=== PATIENT | female | born 1955 | race Caucasian/White ===

== ENCOUNTER 2017-03-09 08:54 | Day surgery (SDC) | payer BC, OTHER ==
[2017-03-09] MEDS ORDERED: Lactated Ringers 1,000 ML IV SCH (09:30)
[2017-03-09] MEDS ORDERED: Propofol 200 MG/20 ML SDV ONE (09:48)
[2017-03-09] MEDS ORDERED: Midazolam 1 MG/ML 2 ML SDV ONE (09:49)
[2017-03-09] MEDS ORDERED: fentaNYL 100 MCG/2 ML SDV ONE (09:49)
[2017-03-09 12:49] VITALS: BP 118/86
--- NOTE | 2017-03-10 07:30 | OR ---
DATE OF PROCEDURE: 03/09/2017 PREOPERATIVE DIAGNOSIS: Colon cancer screening. POSTOPERATIVE DIAGNOSIS: Diverticulosis. PROCEDURE: Colonoscopy to the cecum. ANESTHESIA: IV anesthesia with monitored anesthesia care. INDICATION: This 61-year-old white female was referred for a colonoscopy for colon cancer screening. She has never had a colonoscopic exam. I counseled her for the procedure including risks and alternatives and she gave her informed consent to proceed. DESCRIPTION OF PROCEDURE: The patient was placed in the left lateral decubitus position. IV anesthesia was administered by the Anesthesia Service. Time-out was held. A rectal exam was performed, which was unremarkable. A flexible video Olympus colonoscope was introduced through her anus, up her rectum, and out her colon all the way to the cecum. En route, we saw several left-sided diverticula. There was no bleeding or inflammation associated with them. Once the cecum was reached, the scope was slowly withdrawn examining the mucosa throughout. No additional mucosal abnormalities were noted. The scope was retroflexed in the rectum with the distal rectum showing some hemorrhoidal tissue. The scope was straightened and removed. She tolerated the procedure well. Toro Walker MD /[id number]
== END 2017-03-09 12:53 | disposition home or self-care (01) ==
LOC: JP.SDS 08:54
PROVIDERS: ATTEND Surgery
DX: Z12.11 Encounter for screening for malignant neoplasm of colon (principal); K57.30 Diverticulosis of large intestine without perforation or abscess without bleeding; I10 Essential (primary) hypertension; E78.5 Hyperlipidemia, unspecified; K21.9 Gastro-esophageal reflux disease without esophagitis; F17.200 Nicotine dependence, unspecified, uncomplicated
CPT/HCPCS: 45378; J2250; J2704; J3010; J7120

== ENCOUNTER 2020-06-22 15:33 | Emergency (ER) | payer OTHER ==
[2020-06-22] MEDS ORDERED: Acetaminophen/HYDROcodone 325-5 MG Tab PO ONE (16:02)
--- NOTE | 2020-06-22 16:13 | EDM.PDOC ---
ED HPI GENERAL MEDICAL PROBLEM - General Chief Complaint: General Stated Complaint: CHEST PAIN,CHILLS,VOMITING Time Seen by Provider: 06/22/20 15:46 Source of Information: Reports: Patient History Limitations: Reports: No Limitations - History of Present Illness INITIAL COMMENTS - FREE TEXT/NARRATIVE: 64-year-old female developed chest pain last night and today has fever, chills, general myalgias and a headache. Her symptoms have not improved with Tylenol. She has had no exposures to COVID nor has she traveled recently. She denies any significant health problems other than hypertension. He is not diabetic nor does she have any other immunocompromising conditions. She has no decrease in smell or taste. She has nausea and vomiting no diarrhea. She denies abdominal pain. She denies shortness of breath and cough. Generalized Pain Score (Numeric/FACES): 8 - Related Data Allergies Allergy/AdvReac Type Severity Reaction Status Date / Time No Known Allergies Allergy Verified 03/09/17 09:08 Home Meds: Home Meds Naproxen [Naprosyn] 1 tab PO BID PRN 04/16/14 [History] Aspirin [Halfprin] 81 mg PO DAILY 03/07/17 [History] atorvaSTATin [Lipitor] 10 mg PO DAILY 03/07/17 [History] dilTIAZem HCL [Dilt-Xr] 180 mg PO DAILY 03/07/17 [History] Omeprazole Magnesium [Prilosec Otc] 20 mg PO DAILY PRN 03/09/17 [History] Past Medical History Gastrointestinal History: Reports: GERD Musculoskeletal History: Reports: Arthritis Neurological History: Reports: Migraines - Infectious Disease History Infectious Disease History: Reports: Chicken Pox, Measles, Mumps - Past Surgical History GI Surgical History: Reports: Colonoscopy Social & Family History - Family History Family Medical History: Noncontributory - Tobacco Use Smoking Status *Q: Current Every Day Smoker Years of Tobacco use: 30 Packs/Tins Daily: 0.5 - Caffeine Use Caffeine Use: Reports: Coffee Caffeine Use Comment: 2 cups - Recreational Drug Use Recreational Drug Use: No ED ROS GENERAL - Review of Systems Review Of Systems: See Below Constitutional: Reports: Fever, Chills, Weakness, Fatigue HEENT: Denies: Ear Pain, Throat Pain Respiratory: Denies: Shortness of Breath, Cough Cardiovascular: Reports: Chest Pain Endocrine: Reports: Polydypsia, Polyuria GI/Abdominal: Reports: Nausea, Vomiting : Reports: No Symptoms Musculoskeletal: Reports: Muscle Pain, Other Skin: Reports: No Symptoms, Other Neurological: Reports: No Symptoms Psychiatric: Reports: No Symptoms ED EXAM, GENERAL - Physical Exam Exam: See Below Exam Limited By: No Limitations General Appearance: Alert, WD/WN, Moderate Distress Ears: Normal External Exam, Normal Canal, Normal TMs Throat/Mouth: Normal Inspection, Normal Teeth, Normal Oropharynx Neck: Normal Inspection, Supple, Non-Tender Respiratory/Chest: No Respiratory Distress, Lungs Clear, Normal Breath Sounds Cardiovascular: Normal Peripheral Pulses, Regular Rate, Rhythm GI/Abdominal: Normal Bowel Sounds, Soft, Non-Tender Extremities: Normal Inspection, Other Neurological: Other (She has a normal neurologic exam of the toes. There is no tingling. She is able to move her toes without difficulty. Her toes are warm and normal color.) Skin Exam: Warm, Dry, Intact Lymphatic: No Adenopathy Course - Vital Signs Text/Narrative:: Patient presents to the emergency department with chills, fever, headache, nausea and vomiting that started last night. She has no known exposures to COVID. COVID in-house rapid test was negative. She has a slightly elevated white blood count 11,400 with a normal hemoglobin and hematocrit. Her creatinine is slightly elevated at 1.2 and BUN is 14. Her potassium, CO2 and sodium were normal. Liver function tests are normal as is total bilirubin. LDH is normal at 188. Lipase is 134 and troponin is less than 0.017. Urinalysis is negative this x-ray appears normal to me. ECG by my interpretation shows no acute changes. The patient appears to have a influenza-like illness. She will be treated symptomatically. She received an empiric dose of Rocephin in the ER but I do not plan on prescribing any antibiotics for her at this time as I feel it is a viral infection. The patient will follow-up with her primary care provider within the next few days if she is not feeling better. She can take OTC analgesics and antipyretics. She return to the ER if she feels any worsening. Her vital signs are stable. Last Recorded V/S: Last Vital Signs Temp 36.7 C 06/22/20 18:15 Pulse 89 06/22/20 18:15 Resp 16 06/22/20 18:15 BP 104/55 L 06/22/20 18:15 Pulse Ox 98 06/22/20 18:15 - Orders/Labs/Meds Orders: Active Orders 24 hr Category Date Time Status EKG Documentation Completion [RC] ASDIRECTED Care 06/22/20 16:36 Active Chest 1V Frontal [CR] Stat Exams 06/22/20 16:37 Taken CULTURE BLOOD [BC] Stat Lab 06/22/20 16:59 Received CULTURE BLOOD [BC] Stat Lab 06/22/20 16:59 Received MICROSCOPIC ADD TO UA [URIN] Stat Lab 06/22/20 18:22 Results UA W/MICROSCOPIC [URIN] Stat Lab 06/22/20 18:22 Results EKG 12 Lead [EK] Routine Ther 06/22/20 16:36 Ordered Labs: Laboratory Tests 06/22/20 06/22/20 06/22/20 Range/Units 16:34 16:59 16:59 WBC 11.4 H (4.5-11.0) K/uL RBC 4.56 (3.30-5.50) M/uL Hgb 14.1 (12.0-15.0) g/dL Hct 41.3 (36.0-48.0) % MCV 91 (80-98) fL MCH 31 (27-31) pg MCHC 34 (32-36) % Plt Count 186 (150-400) K/uL Neut % (Auto) 90 H (36-66) % Lymph % (Auto) 5 L (24-44) % [facility] % (Auto) 5 (2-6) % Eos % (Auto) 0 L (2-4) % Baso % (Auto) 0 (0-1) % Sodium 138 L (140-148) mmol/L Potassium 3.6 (3.6-5.2) mmol/L Chloride 102 (100-108) mmol/L Carbon Dioxide 23 (21-32) mmol/L Anion Gap 16.6 H (5.0-14.0) mmol/L BUN 14 (7-18) mg/dL Creatinine 1.2 H (0.6-1.0) mg/dL Est Cr Clr Drug Dosing 46.06 mL/min Estimated GFR (MDRD) 45 L (>60) Glucose 118 H (74-106) mg/dL Calcium 8.6 (8.5-10.1) mg/dL Total Bilirubin 0.7 (0.2-1.0) mg/dL AST 27 (15-37) U/L ALT 37 (12-78) U/L Alkaline Phosphatase 93 (46-116) U/L Lactate Dehydrogenase 188 (82-234) U/L Troponin I (0.000-0.056) ng/mL Total Protein 6.6 (6.4-8.2) g/dL Albumin 3.5 (3.4-5.0) g/dL Globulin 3.1 (2.3-3.5) g/dL Albumin/Globulin Ratio 1.1 L (1.2-2.2) Lipase 134 (73-393) U/L Urine Color (YELLOW) Urine Appearance (CLEAR) Urine pH (5.0-8.0) Ur Specific [place] (1.008-1.030) Urine Protein (NEGATIVE) mg/dL Urine Glucose (UA) (NEGATIVE) mg/dL Urine Ketones (NEGATIVE) mg/dL Urine Occult Blood (NEGATIVE) Urine Nitrite (NEGATIVE) Urine Bilirubin (NEGATIVE) Urine Urobilinogen (0.2-1.0) EU/dL Ur Leukocyte Esterase (NEGATIVE) Urine RBC (0-5) Urine WBC (0-5) Ur Epithelial Cells Urine Mucus SARS Virus RNA (PCR) Negative (NEGATIVE) 06/22/20 06/22/20 Range/Units 16:59 18:22 WBC (4.5-11.0) K/uL RBC (3.30-5.50) M/uL Hgb (12.0-15.0) g/dL Hct (36.0-48.0) % MCV (80-98) fL MCH (27-31) pg MCHC (32-36) % Plt Count (150-400) K/uL Neut % (Auto) (36-66) % Lymph % (Auto) (24-44) % [facility] % (Auto) (2-6) % Eos % (Auto) (2-4) % Baso % (Auto) (0-1) % Sodium (140-148) mmol/L Potassium (3.6-5.2) mmol/L Chloride (100-108) mmol/L Carbon Dioxide (21-32) mmol/L Anion Gap (5.0-14.0) mmol/L BUN (7-18) mg/dL Creatinine (0.6-1.0) mg/dL Est Cr Clr Drug Dosing mL/min Estimated GFR (MDRD) (>60) Glucose (74-106) mg/dL Calcium (8.5-10.1) mg/dL Total Bilirubin (0.2-1.0) mg/dL AST (15-37) U/L ALT (12-78) U/L Alkaline Phosphatase (46-116) U/L Lactate Dehydrogenase (82-234) U/L Troponin I < 0.017 (0.000-0.056) ng/mL Total Protein (6.4-8.2) g/dL Albumin (3.4-5.0) g/dL Globulin (2.3-3.5) g/dL Albumin/Globulin Ratio (1.2-2.2) Lipase (73-393) U/L Urine Color Yellow (YELLOW) Urine Appearance Clear (CLEAR) Urine pH 7.0 (5.0-8.0) Ur Specific [place] 1.015 (1.008-1.030) Urine Protein Trace H (NEGATIVE) mg/dL Urine Glucose (UA) Negative (NEGATIVE) mg/dL Urine Ketones Trace H (NEGATIVE) mg/dL Urine Occult Blood Negative (NEGATIVE) Urine Nitrite Negative (NEGATIVE) Urine Bilirubin Negative (NEGATIVE) Urine Urobilinogen 0.2 (0.2-1.0) EU/dL Ur Leukocyte Esterase Trace H (NEGATIVE) Urine RBC Not seen (0-5) Urine WBC 0-5 (0-5) Ur Epithelial Cells Few Urine Mucus Few SARS Virus RNA (PCR) (NEGATIVE) Meds: Medications Discontinued Medications Generic Name Dose Route Start Last Admin Trade Name Freq PRN Reason Stop Dose Admin Hydrocodone Bitart/Acetaminophen 2 tab 06/22/20 16:02 Rex 325-5 Mg PO 06/22/20 16:03 ONETIME ONE Ceftriaxone Sodium 1 gm/ 50 mls @ 100 mls/hr 06/22/20 16:38 06/22/20 17:11 Sodium Chloride IV 06/22/20 17:07 100 mls/hr ONETIME ONE Administration Ibuprofen 600 mg 06/22/20 16:31 06/22/20 16:38 Motrin PO 06/22/20 16:32 600 mg ONETIME ONE Administration Departure - Departure Time of Disposition: 18:41 Disposition: Home, Self-Care 01 Condition: Good Clinical Impression: Influenza-like illness - Discharge Information *PRESCRIPTION DRUG MONITORING PROGRAM REVIEWED*: No *COPY OF PRESCRIPTION DRUG MONITORING REPORT IN PATIENT BOBBY: No Instructions: Influenza, Adult, [id number] Referrals: Sanjay Lang MD [Primary Care Provider] - Forms: ED Department Discharge Additional Instructions: Take Tylenol, ibuprofen, Aleve or naproxen as needed for muscle aches and pains as well as fever. Drink plenty of fluids. Follow-up with your primary care provider as needed. Return here if your symptoms worsen. Sepsis Event Note (ED) - Evaluation Sepsis Screening Result: Possible Sepsis Risk - Focused Exam Vital Signs: Vital Signs Temp Temp Pulse Resp BP Pulse Ox 06/22/20 18:15 36.7 C 89 16 104/55 L 98 06/22/20 17:38 36.6 C 06/22/20 17:14 38.4 C H 94 117/63 94 L 06/22/20 16:45 94 118/68 95 06/22/20 16:38 38.6 C H 06/22/20 16:15 95 135/77 94 L 06/22/20 16:03 97 18 123/59 L 97 06/22/20 15:45 38.6 C H 94 16 123/59 L 97 - My Orders Last 24 Hours: My Active Orders 06/22/20 16:36 EKG Documentation Completion [RC] ASDIRECTED EKG 12 Lead [EK] Routine 06/22/20 16:37 Chest 1V Frontal [CR] Stat 06/22/20 16:59 CULTURE BLOOD [BC] Stat CULTURE BLOOD [BC] Stat 06/22/20 18:22 MICROSCOPIC ADD TO UA [URIN] Stat UA W/MICROSCOPIC [URIN] Stat - Assessment/Plan Last 24 Hours: My Active Orders 06/22/20 16:36 EKG Documentation Completion [RC] ASDIRECTED EKG 12 Lead [EK] Routine 06/22/20 16:37 Chest 1V Frontal [CR] Stat 06/22/20 16:59 CULTURE BLOOD [BC] Stat CULTURE BLOOD [BC] Stat 06/22/20 18:22 MICROSCOPIC ADD TO UA [URIN] Stat UA W/MICROSCOPIC [URIN] Stat
[2020-06-22] MEDS ORDERED: Ibuprofen 600 MG Tab PO ONE (16:31)
[2020-06-22] MEDS ORDERED: cefTRIAXone 1 GM in Sodium Chloride 0.9% 50 ML IV ONE (16:38)
[2020-06-22 18:24] VITALS: BP 104/55; PULSE 89
--- NOTE | 2020-06-23 15:21 | CR ---
CHEST: Portable 06/22/2020 at 5:26 PM CLINICAL HISTORY:Fever COMPARISON:None FINDINGS: The heart size, pulmonary vascularity and hilar structures are normal. There is some streaky density in the right infrahilar region. This is nonspecific IMPRESSION: Mild streaky density right infrahilar region may represent some streaky atelectasis or minimal infiltrate
== END 2020-06-22 19:01 | disposition home or self-care (01) ==
LOC: JP.ED 15:33
DX: J11.1 Influenza due to unidentified influenza virus with other respiratory manifestations (principal); K21.9 Gastro-esophageal reflux disease without esophagitis; G43.909 Migraine, unspecified, not intractable, without status migrainosus; F17.210 Nicotine dependence, cigarettes, uncomplicated; Z20.828 Contact with and (suspected) exposure to other viral communicable diseases; Z79.82 Long term (current) use of aspirin; Z79.899 Other long term (current) drug therapy
CPT/HCPCS: 36415; 71045; 80053; 81001; 83615; 83690; 84484; 85025; 87040; 87635; 93005; 96365; 99285; A9270; J0696; J7050; 87077; 87186; U0002

== ENCOUNTER 2021-07-25 14:15 | Emergency (ER) | payer MEDICARE, BC ==
[2021-07-25 15:33] VITALS: BP 149/108; PULSE 78
--- NOTE | 2021-07-25 17:14 | EDM.PDOC ---
ED HPI GENERAL MEDICAL PROBLEM - General Chief Complaint: WEB PRODUCTION ASSISTANT Problem Stated Complaint: personal LADY PROBLEMS Time Seen by Provider: 07/25/21 16:45 Source of Information: Reports: Patient, RN Notes Reviewed History Limitations: Reports: No Limitations - History of Present Illness INITIAL COMMENTS - FREE TEXT/NARRATIVE: Alissa presents today after developing a bulge from her vagina after intercourse earlier today. She denies pain, vaginal bleeding or any other injury/trauma. She denies difficulty with urination or with bowel movements. Alissa reports hysterectomy in . 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: Musculoskeletal History: Reports: Arthritis Neurological History: Reports: Migraines - Infectious Disease History Infectious Disease History: Reports: Chicken Pox, Measles, Mumps - Past Surgical History Head Surgeries/Procedures: Reports: None HEENT Surgical History: Reports: Tonsillectomy Cardiovascular Surgical History: Reports: None GI Surgical History: Reports: Appendectomy, Colonoscopy Female Surgical History: Reports: Hysterectomy, Salpingo-Oophorectomy Neurological Surgical History: Reports: None Musculoskeletal Surgical History: Reports: None Dermatological Surgical History: Reports: None Social & Family History - Family History Family Medical History: No Pertinent Family History - Tobacco Use Tobacco Use Status *Q: Current Every Day Tobacco User Years of Tobacco use: 50 Packs/Tins Daily: 0.5 Used Tobacco, but Quit: No - Caffeine Use Caffeine Use: Reports: Coffee Caffeine Use Comment: 2 cups - Recreational Drug Use Recreational Drug Use: No ED ROS GENERAL - Review of Systems Review Of Systems: See Below Constitutional: Reports: No Symptoms HEENT: Reports: No Symptoms Respiratory: Reports: No Symptoms Cardiovascular: Reports: No Symptoms Endocrine: Reports: No Symptoms GI/Abdominal: Reports: No Symptoms : Reports: Other (protrusion from vagina after intercourse today without pain, bleeding or other concerns. ) Musculoskeletal: Reports: No Symptoms Skin: Reports: No Symptoms Neurological: Reports: No Symptoms Psychiatric: Reports: No Symptoms Hematologic/Lymphatic: Reports: No Symptoms Immunologic: Reports: No Symptoms ED EXAM, RENAL/ - Physical Exam Exam: See Below Exam Limited By: No Limitations General Appearance: Alert, WD/WN, No Apparent Distress Head: Atraumatic, Normocephalic Neck: Normal Inspection, Supple, Non-Tender, Full Range of Motion. No: Lymphadenopathy (R), Lymphadenopathy (L) Respiratory/Chest: No Respiratory Distress, Lungs Clear, Normal Breath Sounds, No Accessory Muscle Use, Chest Non-Tender. No: Decreased Breath Sounds, Crackles, Rales, Rhonchi, Wheezing, Stridor, Retractions, Splinting Cardiovascular: Normal Peripheral Pulses, Regular Rate, Rhythm, No Edema, No Gallop, No Murmur, No Rub GI/Abdominal: Normal Bowel Sounds, Soft, Non-Tender, No Organomegaly, No Distention, No Mass, Pelvis Stable. No: Guarding, Rigid, Rebound, Tender, Hernia (Female) Exam: Normal External Exam, Normal Bimanual Exam, Other (noted possible rectocele with bearing down. No vaginal dryness or atrophy noted. ). No: Vaginal Bleeding, Vaginal Discharge, Vaginal Lesions, Vaginal Tears Rectal (Female) Exam: Deferred Back Exam: Normal Inspection, Full Range of Motion. No: CVA Tenderness (R), CVA Tenderness (L) Extremities: Normal Inspection, Normal Range of Motion, Non-Tender, No Pedal Edema, Normal Capillary Refill Neurological: Alert, Oriented, CN II-XII Intact Psychiatric: Normal Affect, Normal Mood Skin Exam: Warm, Dry, Intact, Normal Color, No Rash Lymphatic: No Adenopathy Course - Vital Signs Last Recorded V/S: Last Vital Signs Temp 36.3 C 07/25/21 16:10 Pulse 78 07/25/21 16:10 Resp 15 07/25/21 16:10 BP 149/108 H 07/25/21 16:10 Pulse Ox 98 07/25/21 16:10 - Re-Assessments/Exams Free Text/Narrative Re-Assessment/Exam: Vaginal exam discussed with patient. personal photo reviewed from time of vaginal protrusion. Image looks like vaginal prolapse/rectocele. Patient advised to follow up with [facility] as directed. All her questions were answered, she is in agreement with plan. Repeat blood pressure 148/87 Departure - Departure Time of Disposition: 17:08 Disposition: Home, Self-Care 01 Condition: Good Clinical Impression: Posterior vaginal hernia - Discharge Information *PRESCRIPTION DRUG MONITORING PROGRAM REVIEWED*: Not Applicable *COPY OF PRESCRIPTION DRUG MONITORING REPORT IN PATIENT BOBBY: Not Applicable Instructions: Pelvic Organ Prolapse Referrals: Sanjay Lang MD [Primary Care Provider] - Forms: ED Department Discharge Additional Instructions: You have been evaluated and treated for a hernia of the vaginal vault, most likely a rectocele Keep the area clean, shower/bathe as usual. Saline based lubricant to vaginal tissue to prevent dryness. Follow up with [facility] - this is the where you had your hysterectomy. Drink plenty of water. If you have recurrence of protruding tissues from the vagina, gently push the tissues back in. If you have pain, difficulty urinating or having bowel movements then return to the emergency room. Sepsis Event Note (ED) - Focused Exam Vital Signs: Vital Signs Temp Pulse Resp BP Pulse Ox 07/25/21 16:10 36.3 C 78 15 149/108 H 98 07/25/21 15:32 36.3 C 78 15 149/108 H 98 - Assessment/Plan Assessment:: Posterior vaginal hernia Plan: Patient evaluated and treated for a hernia of the vaginal vault, most likely a rectocele Keep the area clean, shower/bathe as usual. Saline based lubricant to vaginal tissue to prevent dryness. Follow up with [facility] - this is the where you had your hysterectomy. Drink plenty of water. If you have recurrence of protruding tissues from the vagina, gently push the tissues back in. If you have pain, difficulty urinating or having bowel movements then return to the emergency room.
== END 2021-07-25 17:22 | disposition home or self-care (01) ==
LOC: JP.ED 14:15
DX: N81.10 Cystocele, unspecified (principal); Z79.82 Long term (current) use of aspirin; Z79.899 Other long term (current) drug therapy; Z72.0 Tobacco use
CPT/HCPCS: 99283

== ENCOUNTER 2023-02-09 14:28 | Emergency (ER) | payer MEDICARE, BC ==
[2023-02-09] MEDS ORDERED: Aspirin 81 MG Tab.Chew PO ONE (14:35)
[2023-02-09] MEDS ORDERED: Nitroglycerin 0.4 MG Tab.SL SL ONE (14:35)
[2023-02-09] MEDS ORDERED: Sodium Chloride 0.9% 10 ML Syringe FLUSH PRN (14:35)
[2023-02-09] MEDS ORDERED: Ondansetron 4 MG/2 ML SDV IVPUSH ONE (14:36)
[2023-02-09 15:11] LABS: ESTIMATED GFR 50 mL/min (>60); TROPONIN I HIGH SENSITIVITY 5.5 pg/mL (<=60.3)
[2023-02-09] MEDS ORDERED: Sodium Chloride 0.9% 500 ML IV ONE (15:16)
[2023-02-09] MEDS ORDERED: Iopamidol 612 MG/ML 100 ML Bottle IV ONE (15:22)
[2023-02-09] MEDS ORDERED: Sodium Chloride 0.9% 10 ML Syringe FLUSH ONE (15:22)
[2023-02-09] MEDS ORDERED: Sodium Chloride 0.9% 50 ML IV ONE (15:22)
[2023-02-09] MEDS ORDERED: HYDROmorphone 0.5 MG/0.5 ML Syringe IVPUSH ONE (16:17)
[2023-02-09] MEDS ORDERED: Sodium Chloride 0.9% 1,000 ML IV SCH (16:30)
[2023-02-09] MEDS ORDERED: Piperacillin/Tazobactam 3.375 GM in Sodium Chloride 0.9% 50 ML IV ONE (16:30)
[2023-02-09 16:34] VITALS: PULSE 79
[2023-02-09] MEDS ORDERED: Potassium Chloride 100 ML ONE (16:39)
[2023-02-09] MEDS: Potassium Chloride 10 MEQ in Premix Bag 1 BAG IV SCH ×2 (16:44→17:46)
[2023-02-09 17:01] VITALS: BP 136/84
== END 2023-02-09 18:34 ==
LOC: JP.ED 14:28
DX: K85.10 Biliary acute pancreatitis without necrosis or infection (principal); R11.2 Nausea with vomiting, unspecified; E87.6 Hypokalemia; R79.89 Other specified abnormal findings of blood chemistry; Z79.82 Long term (current) use of aspirin; Z79.899 Other long term (current) drug therapy
CPT/HCPCS: 36415; 71045; 74177; 80048; 80076; 83690; 84484; 85025; 85379; 85610; 85730; 86140; 93005; 96365; 96366; 96368; 96375; 99285; A9270; J1170; J2405; J2543; J3480; J3490; J7030; J7040; Q9967

== ENCOUNTER 2023-02-13 20:57 | Emergency (ER) | payer MEDICARE, BC ==
[2023-02-13] MEDS ORDERED: Sodium Chloride 0.9% 10 ML Syringe FLUSH PRN (21:32)
[2023-02-13] MEDS ORDERED: Sodium Chloride 0.9% 1,000 ML IV STA (21:32)
[2023-02-13] MEDS ORDERED: fentaNYL 50 MCG/ML SDV IVPUSH ONE (21:36)
[2023-02-13] MEDS ORDERED: Sodium Chloride 0.9% 10 ML SDV FLUSH ONE (21:42)
[2023-02-13] MEDS ORDERED: Iopamidol 612 MG/ML 100 ML Bottle IV PRN (21:42)
[2023-02-13] MEDS ORDERED: Sodium Chloride 0.9% 50 ML IV SCH (21:45)
[2023-02-13 22:21] LABS: ESTIMATED GFR 81 mL/min (>60)
[2023-02-13 22:27] LABS: TROPONIN I HIGH SENSITIVITY 367.8 pg/mL (<=60.3)
[2023-02-13] MEDS ORDERED: HYDROmorphone 1 MG/ML Syringe IVPUSH ONE (23:18)
[2023-02-13] MEDS ORDERED: Lactated Ringers 1,000 ML IV ONE (23:51)
[2023-02-13] MEDS ORDERED: Polyethylene Glycol 3350 Powder 238 GM Bot PO ONE (23:51)
[2023-02-14] MEDS ORDERED: HYDROmorphone 0.5 MG/0.5 ML Syringe IVPUSH ONE ×2 (01:43→08:16)
[2023-02-14] MEDS ORDERED: Bisacodyl 5 MG Tab PO ONE (02:23)
[2023-02-14 07:21] VITALS: BP 160/79; PULSE 71
[2023-02-14] MEDS ORDERED: Ondansetron 4 MG Tab.DIS PO ONE (08:08)
== END 2023-02-14 09:06 | disposition home or self-care (01) ==
LOC: JP.ED 20:57
DX: G89.18 Other acute postprocedural pain (principal); R10.11 Right upper quadrant pain; K59.00 Constipation, unspecified; M19.90 Unspecified osteoarthritis, unspecified site; F17.210 Nicotine dependence, cigarettes, uncomplicated; Z79.82 Long term (current) use of aspirin; Z90.89 Acquired absence of other organs; Z90.49 Acquired absence of other specified parts of digestive tract
CPT/HCPCS: 36415; 74177; 80053; 81001; 83605; 83690; 84484; 85025; 93005; 96361; 96374; 96375; 96376; 99284; A9270; J1170; J3010; J3490; J7030; J7120; Q0162; Q9967; 93010; 99283